=== PATIENT | male | born 1950 | race Caucasian/White ===

== ENCOUNTER 2021-02-16 10:59 | Emergency (ER) | payer MEDICARE ==
[2021-02-16 12:43] LABS: Basophils % (Auto) 0.6 % (0.0-1.8); Eosinophils % (Auto) 0.4 % (0.0-4.3); Hematocrit 33.7 % (35.5-45.6); Hemoglobin 11.5 gm/dl (11.8-15.2); Lymphocytes # (Auto) 1.5 K/mm3 (1.2-5.4); Lymphocytes % (Auto) 28.9 % (13.4-35.0); Mean Corpuscular HGB Conc 34 % (32-34); Mean Corpuscular Volume 100 fl (84-94); Monocytes # (Auto) 0.5 K/mm3 (0.0-0.8); Monocytes % (Auto) 9.1 % (0.0-7.3); Platelet Count 244 K/mm3 (140-440); Red Blood Count 3.37 M/mm3 (3.65-5.03)
--- NOTE | 2021-02-16 12:54 | XRay Report ---
CHEST 1 VIEW INDICATION: AMS. COMPARISON: None. FINDINGS: Support devices: None. Heart: Normal. Lungs/Pleura: There are low lung volumes with mild atelectatic changes in the bases. IMPRESSION: 1. No acute findings. Signer Name: Noel Acevedo MD Signed: 02/16/2021 12:50 PM Workstation Name: [id number]
[2021-02-16 13:01] LABS: Alanine Aminotransferase 17 units/L (7-56); Albumin 4.2 g/dL (3.9-5)
[2021-02-16 13:02] LABS: Bilirubin,Direct < 0.2 mg/dL (0-0.2)
--- NOTE | 2021-02-16 13:03 | Cat Scan Report ---
CT head/brain wo con INDICATION / CLINICAL INFORMATION: AMS. TECHNIQUE: Axial CT imaging of the brain was obtained without contrast. Coronal and sagittal reformatted imaging obtained and reviewed. All CT scans at this location are performed using CT dose reduction for ALAR A by means of automated exposure control. COMPARISON: None available. FINDINGS: No intracranial hemorrhage, mass, or midline shift is noted. No extra-axial fluid collection or sugge stion of acute territorial infarct. Ventricular system and basilar cisterns are grossly unremarkable. There is mild to moderate cerebral and cerebellar atrophy with commensurate enlargement of the ventr icular system and cerebral sulci. Visualized paranasal sinuses and mastoid air cells are well aerated and clear. No calvarial abnormali ty of significance. IMPRESSION: 1. No acute intracranial abnormality. Signer Name: Coty Gastelum MD Signed: 02/16/2021 12:58 PM Workstation Name: [id number]
[2021-02-16 13:11] LABS: Free T4 (Free Thyroxine) 1.09 ng/dL (0.76-1.46)
[2021-02-16 13:36] LABS: BUN/Creatinine Ratio 41; Blood Urea Nitrogen 33 mg/dL (9-20); Calcium 9.6 mg/dL (8.4-10.2); Hemolysis Index 2
--- NOTE | 2021-02-16 14:19 | Emergency Department Report ---
ED Altered Mental Status HPI - General Chief Complaint: Altered Mental Status Stated Complaint: AMS Time Seen by Provider: 02/16/21 11:56 Source: EMS Mode of arrival: Stretcher Limitations: Language Barrier, Altered Mental Status - History of Present Illness Initial Comments: 66-year-old male brought to ED by EMS for evaluation. According to EMS, police was called due to patient wandering neighborhood. Patient seems to be confused. He is [place]ish-speaking only. Attempted to get a history from the patient using logging operations inspector, however leather case finisher states patient is not making any sense. Patient states his name is Sj Lucero. Complaint: altered mental status -: unknown - Related Data Previous Rx's Medication Instructions Recorded Last Taken Type Sulfamethoxazole/Trimethoprim 1 each PO BID 5 Days #10 tablet 02/16/21 Unknown Rx [Bactrim DS TAB] Allergies Allergy/AdvReac Type Severity Reaction Status Date / Time Unable to Assess Allergy Unverified 02/16/21 11:12 ED Review of Systems ROS: Stated complaint: AMS Other details as noted in HPI ED Past Medical Hx - Medications Home Medications: Home Medications Medication Instructions Recorded Confirmed Last Taken Type Sulfamethoxazole/Trimethoprim 1 each PO BID 5 Days #10 tablet 02/16/21 Unknown Rx [Bactrim DS TAB] ED Physical Exam - General Limitations: Language Barrier, Altered Mental Status ED Course Vital Signs 02/16/21 02/16/21 02/16/21 12:46 13:01 13:15 Temperature Pulse Rate 65 73 Respiratory 11 L 16 Rate Blood Pressure 137/80 137/80 O2 Sat by Pulse 99 99 100 Oximetry 02/16/21 02/16/21 02/16/21 13:31 13:45 13:51 Temperature 98.3 F Pulse Rate 75 62 Respiratory 17 13 Rate Blood Pressure 137/82 137/82 O2 Sat by Pulse 99 99 Oximetry 02/16/21 02/16/21 02/16/21 14:01 14:15 14:31 Temperature Pulse Rate 60 78 76 Respiratory 13 13 12 Rate Blood Pressure 138/76 138/76 135/80 O2 Sat by Pulse 98 100 100 Oximetry 02/16/21 02/16/21 02/16/21 14:42 14:45 15:01 Temperature Pulse Rate 73 56 L Respiratory 13 13 Rate Blood Pressure 135/80 121/56 O2 Sat by Pulse 100 99 100 Oximetry 10/02/2702/16/21 02/16/21 15:15 15:31 15:45 Temperature Pulse Rate 62 58 L 60 Respiratory 16 14 14 Rate Blood Pressure 121/56 121/63 121/63 O2 Sat by Pulse 100 100 100 Oximetry 02/16/21 02/16/21 16:01 16:15 Temperature Pulse Rate 58 L Respiratory 12 19 Rate Blood Pressure 121/63 121/63 O2 Sat by Pulse 100 97 Oximetry - Reevaluation(s) Reevaluation #1: 02/16/21 15:10 Able to find a previous chart on patient. Dina Torres is listed as spouse and person to notify. I spoke with Ms Arroyo, who states that patient has a history of dementia. States he took off running from the house 2 days ago, however she was unable to adrienne after him because she has a bad leg. States she did not file a police report. Ms Arroyo states patient's dementia has been worsening over the last couple of months. Work-up has been negative. Patient seems to be at his baseline according to what Ms Arroyo has reported. Patient will be discharged at this time. Address has been provided. Transportation will be called. - Lab Data Result diagrams: 02/16/21 12:03 02/16/21 12:03 Lab Results 02/16/21 02/16/21 02/16/21 Range/Units 12:03 12:03 12:03 WBC 5.3 (4.5-11.0) K/mm3 RBC 3.37 L (3.65-5.03) M/mm3 Hgb 11.5 L (11.8-15.2) gm/dl Hct 33.7 L (35.5-45.6) % MCV 100 H (84-94) fl MCH 34 H (28-32) pg MCHC 34 (32-34) % RDW 15.0 (13.2-15.2) % Plt Count 244 (140-440) K/mm3 Lymph % (Auto) 28.9 (13.4-35.0) % Titus % (Auto) 9.1 H (0.0-7.3) % Eos % (Auto) 0.4 (0.0-4.3) % Baso % (Auto) 0.6 (0.0-1.8) % Lymph # (Auto) 1.5 (1.2-5.4) K/mm3 Titus # (Auto) 0.5 (0.0-0.8) K/mm3 Eos # (Auto) 0.0 (0.0-0.4) K/mm3 Baso # (Auto) 0.0 (0.0-0.1) K/mm3 Seg Neutrophils % 61.0 (40.0-70.0) % Seg Neutrophils # 3.2 (1.8-7.7) K/mm3 Sodium 138 (137-145) mmol/L Potassium 3.7 (3.6-5.0) mmol/L Chloride 100.9 (98-107) mmol/L Carbon Dioxide 24 (22-30) mmol/L Anion Gap 17 mmol/L BUN 33 H (9-20) mg/dL Creatinine 0.8 (0.8-1.3) mg/dL Estimated GFR > 60 ml/min BUN/Creatinine Ratio 41 % Glucose 104 H (75-100) mg/dL Calcium 9.6 (8.4-10.2) mg/dL Total Bilirubin (0.1-1.2) mg/dL Direct Bilirubin (0-0.2) mg/dL Indirect Bilirubin mg/dL AST (5-40) units/L ALT (7-56) units/L Alkaline Phosphatase (35-129) units/L Total Protein (6.3-8.2) g/dL Albumin (3.9-5) g/dL Albumin/Globulin Ratio % TSH 1.340 (0.270-4.200) mlU/mL Free T4 1.09 (0.76-1.46) ng/dL Urine Color (Yellow) Urine Turbidity (Clear) Urine pH (5.0-7.0) Ur Specific Victoria (1.003-1.030) Urine Protein (Negative) mg/dL Urine Glucose (UA) (Negative) mg/dL Urine Ketones (Negative) mg/dL Urine Blood (Negative) Urine Nitrite (Negative) Urine Bilirubin (Negative) Urine Urobilinogen (<2.0) mg/dL Ur Leukocyte Esterase (Negative) Urine WBC (Auto) (0.0-6.0) /HPF Urine RBC (Auto) (0.0-6.0) /HPF Urine Bacteria (Auto) (Negative) /HPF Urine Mucus /HPF Urine Yeast (Budding) /HPF Salicylates (2.8-20.0) mg/dL Urine Opiates Screen Urine Methadone Screen Acetaminophen (10.0-30.0) ug/mL Ur Barbiturates Screen Ur Phencyclidine Scrn Ur Amphetamines Screen U Benzodiazepines Scrn Urine Cocaine Screen U Marijuana (THC) Screen Drugs of Abuse Note Plasma/Serum Alcohol (0-0.07) % 02/16/21 02/16/21 02/16/21 Range/Units 12:03 12:03 12:03 WBC (4.5-11.0) K/mm3 RBC (3.65-5.03) M/mm3 Hgb (11.8-15.2) gm/dl Hct (35.5-45.6) % MCV (84-94) fl MCH (28-32) pg MCHC (32-34) % RDW (13.2-15.2) % Plt Count (140-440) K/mm3 Lymph % (Auto) (13.4-35.0) % Titus % (Auto) (0.0-7.3) % Eos % (Auto) (0.0-4.3) % Baso % (Auto) (0.0-1.8) % Lymph # (Auto) (1.2-5.4) K/mm3 Titus # (Auto) (0.0-0.8) K/mm3 Eos # (Auto) (0.0-0.4) K/mm3 Baso # (Auto) (0.0-0.1) K/mm3 Seg Neutrophils % (40.0-70.0) % Seg Neutrophils # (1.8-7.7) K/mm3 Sodium (137-145) mmol/L Potassium (3.6-5.0) mmol/L Chloride (98-107) mmol/L Carbon Dioxide (22-30) mmol/L Anion Gap mmol/L BUN (9-20) mg/dL Creatinine (0.8-1.3) mg/dL Estimated GFR ml/min BUN/Creatinine Ratio % Glucose (75-100) mg/dL Calcium (8.4-10.2) mg/dL Total Bilirubin (0.1-1.2) mg/dL Direct Bilirubin (0-0.2) mg/dL Indirect Bilirubin mg/dL AST (5-40) units/L ALT (7-56) units/L Alkaline Phosphatase (35-129) units/L Total Protein (6.3-8.2) g/dL Albumin (3.9-5) g/dL Albumin/Globulin Ratio % TSH (0.270-4.200) mlU/mL Free T4 (0.76-1.46) ng/dL Urine Color (Yellow) Urine Turbidity (Clear) Urine pH (5.0-7.0) Ur Specific Victoria (1.003-1.030) Urine Protein (Negative) mg/dL Urine Glucose (UA) (Negative) mg/dL Urine Ketones (Negative) mg/dL Urine Blood (Negative) Urine Nitrite (Negative) Urine Bilirubin (Negative) Urine Urobilinogen (<2.0) mg/dL Ur Leukocyte Esterase (Negative) Urine WBC (Auto) (0.0-6.0) /HPF Urine RBC (Auto) (0.0-6.0) /HPF Urine Bacteria (Auto) (Negative) /HPF Urine Mucus /HPF Urine Yeast (Budding) /HPF Salicylates < 0.3 L (2.8-20.0) mg/dL Urine Opiates Screen Urine Methadone Screen Acetaminophen 5.0 L (10.0-30.0) ug/mL Ur Barbiturates Screen Ur Phencyclidine Scrn Ur Amphetamines Screen U Benzodiazepines Scrn Urine Cocaine Screen U Marijuana (THC) Screen Drugs of Abuse Note Plasma/Serum Alcohol < 0.01 (0-0.07) % 02/16/21 02/16/21 02/16/21 Range/Units 12:03 14:41 14:41 WBC (4.5-11.0) K/mm3 RBC (3.65-5.03) M/mm3 Hgb (11.8-15.2) gm/dl Hct (35.5-45.6) % MCV (84-94) fl MCH (28-32) pg MCHC (32-34) % RDW (13.2-15.2) % Plt Count (140-440) K/mm3 Lymph % (Auto) (13.4-35.0) % Titus % (Auto) (0.0-7.3) % Eos % (Auto) (0.0-4.3) % Baso % (Auto) (0.0-1.8) % Lymph # (Auto) (1.2-5.4) K/mm3 Titus # (Auto) (0.0-0.8) K/mm3 Eos # (Auto) (0.0-0.4) K/mm3 Baso # (Auto) (0.0-0.1) K/mm3 Seg Neutrophils % (40.0-70.0) % Seg Neutrophils # (1.8-7.7) K/mm3 Sodium (137-145) mmol/L Potassium (3.6-5.0) mmol/L Chloride (98-107) mmol/L Carbon Dioxide (22-30) mmol/L Anion Gap mmol/L BUN (9-20) mg/dL Creatinine (0.8-1.3) mg/dL Estimated GFR ml/min BUN/Creatinine Ratio % Glucose (75-100) mg/dL Calcium (8.4-10.2) mg/dL Total Bilirubin 0.60 (0.1-1.2) mg/dL Direct Bilirubin < 0.2 (0-0.2) mg/dL Indirect Bilirubin 0.4 mg/dL AST 40 (5-40) units/L ALT 17 (7-56) units/L Alkaline Phosphatase 55 (35-129) units/L Total Protein 6.9 (6.3-8.2) g/dL Albumin 4.2 (3.9-5) g/dL Albumin/Globulin Ratio 1.6 % TSH (0.270-4.200) mlU/mL Free T4 (0.76-1.46) ng/dL Urine Color Yellow (Yellow) Urine Turbidity Slightly-cloudy (Clear) Urine pH 6.0 (5.0-7.0) Ur Specific Victoria 1.024 (1.003-1.030) Urine Protein 30 mg/dl (Negative) mg/dL Urine Glucose (UA) Neg (Negative) mg/dL Urine Ketones 80 (Negative) mg/dL Urine Blood Mod (Negative) Urine Nitrite Pos (Negative) Urine Bilirubin Neg (Negative) Urine Urobilinogen < 2.0 (<2.0) mg/dL Ur Leukocyte Esterase Lg (Negative) Urine WBC (Auto) 169.0 H (0.0-6.0) /HPF Urine RBC (Auto) 18.0 (0.0-6.0) /HPF Urine Bacteria (Auto) 1+ (Negative) /HPF Urine Mucus 2+ /HPF Urine Yeast (Budding) 1+ /HPF Salicylates (2.8-20.0) mg/dL Urine Opiates Screen Negative Urine Methadone Screen Negative Acetaminophen (10.0-30.0) ug/mL Ur Barbiturates Screen Negative Ur Phencyclidine Scrn Negative Ur Amphetamines Screen Negative U Benzodiazepines Scrn Negative Urine Cocaine Screen Negative U Marijuana (THC) Screen Negative Drugs of Abuse Note Disclamer Plasma/Serum Alcohol (0-0.07) % - Medical Decision Making 71-year-old male, history of dementia, presents to the ED after being found wandering a neighborhood. We were able to reach patient's optical glass etcher who states that he has been missing for 3 days. States patient has a history of dementia. Work-up is unremarkable except for UTI found on UA. Patient presented to the ED with a Carmichael catheter in place without a bag attached to it, leaking urine on his clothes. Leg bag was attached to the catheter. Graffiti Cleaner asked to have Carmichael catheter removed, however she was advised that she and the patient needs to follow-up with urology. Patient will be discharged with prescription for antibiotics for UTI. Outpatient follow-up advised, return precautions given. - Differential Diagnosis Dementia, UTI, intracranial abnormality, pneumonia Critical care attestation.: If time is entered above; I have spent that time in minutes in the direct care of this critically ill patient, excluding procedure time. ED Disposition Clinical Impression: Dementia, UTI (urinary tract infection) Disposition: 01 HOME / SELF CARE / HOMELESS Is pt being admited?: No Condition: Stable Instructions: Urinary Tract Infection, Adult, [id number], Indwelling Urinary Catheter Care, Adult, [id number], Dementia Caregiver Guide Prescriptions: Sulfamethoxazole/Trimethoprim [Bactrim DS TAB] 1 each PO BID 5 Days #10 tablet Referrals: PRIMARY CAREMD [Primary Care Provider] - 3-5 Days AJAY MALAGON MD [Staff Physician] - 3-5 Days CHIKIS REAGAN MD [Staff Physician] - 3-5 Days Time of Disposition: 15:16
[2021-02-16 15:27] LABS: Bacteria,Urine 1+ /HPF (Negative); Bilirubin,Urine NEG (Negative); Blood,Urine MOD (Negative); Color,Urine Yellow (Yellow); Mucus,Urine 2+ /HPF; Urobilinogen,Urine < 2.0 mg/dL (<2.0)
[2021-02-16 15:35] LABS: Amphetamine Screen,Urine Negative; Benzodiazepines Screen,Urine Negative; Cannabinoid Screen,Urine Negative; Cocaine Screen,Urine Negative; Methadone Screen,Urine Negative; Opiate Screen,Urine Negative
[2021-02-16 16:17] VITALS: BP 121/63
[2021-02-16] MEDS ORDERED: HALOPERIDOL LACTATE 5 MG/1 ML INJ IM ONE (16:52)
[2021-02-16] MEDS ORDERED: HALOPERIDOL LACTATE 5 MG/1 ML INJ ONE (16:52)
== END 2021-02-16 18:16 | disposition home or self-care (01) ==
LOC: EDBD → ED 10:59
DX: F03.90 Unspecified dementia, unspecified severity, without behavioral disturbance, psychotic disturbance, mood disturbance, and anxiety (principal); N39.0 Urinary tract infection, site not specified
CPT/HCPCS: 36415; 70450; 71045; 80048; 80076; 80307; 81001; 84439; 84443; 85025; 96372; 99285; J1630; 80320; 99284; G0480